=== PATIENT | female | born 2000 | race Hispanic/Latino ===

== ENCOUNTER 2023-05-22 13:31 | Emergency (ER) | payer OTHER ==
[~2023-05-22] VITALS: Ht 152.4 cm; Wt 45.4 kg
[2023-05-22 13:34] VITALS: BP 117/73; PULSE 93; RESP 20
[2023-05-22 14:07] LABS: RAPID GROUP A STREP negative (NEGATIVE)
[2023-05-22 14:14] LABS: SARS-CoV-2, RNA, NAAT NEGATIVE SARS CoV-2 (NEGATIVE)
[2023-05-22 14:17] LABS: INFLUENZA TYPE A Negative For Type A (NEGATIVE); INFLUENZA TYPE B Negative For Type B (NEGATIVE)
== END 2023-05-22 17:33 | disposition left against medical advice (07) ==
LOC: EDH 13:31
DX: R51.9 Headache, unspecified (principal); Z53.21 Procedure and treatment not carried out due to patient leaving prior to being seen by health care provider
CPT/HCPCS: 99281; 87635; 87880; 87804 ×2; C9803

== ENCOUNTER 2024-01-17 20:13 | Emergency (ER) | payer OTHER ==
[~2024-01-17] VITALS: Ht 152.4 cm; Wt 44.0 kg
[2024-01-17 20:45] LABS: ADD UA MICROSCOPIC YES; APPEARANCE,URINE CLEAR (CLEAR); BILIRUBIN,URINE NEGATIVE (NEGATIVE); COLOR,URINE YELLOW (YELLOW); GLUCOSE, URINE (UA) 70 mg/dL (NEGATIVE); KETONES,URINE NEGATIVE (NEGATIVE); LEUKOCYTE ESTERASE ,URINE NEGATIVE Leu/uL (NEGATIVE); NITRATE,URINE NEGATIVE (NEGATIVE); OCCULT BLOOD,URINE MODERATE (NEGATIVE); PH,URINE 7.5 (5.0-8.0); PROTEIN,URINE 50 mg/dL (NEGATIVE); UROBILINOGEN,URINE 12 mg/dL (0.2-1.0)
[2024-01-17 20:48] LABS: BACTERIA,URINE FEW /HPF (None Seen); MUCUS,URINE MOD LPF (None Seen); SQUAMOUS EPITHELIAL CELL,UR RARE /HPF (0-2)
[2024-01-17 20:58] LABS: RAPID GROUP A STREP negative (NEGATIVE)
[2024-01-17 21:05] LABS: SARS-CoV-2, RNA, NAAT NEGATIVE SARS CoV-2 (NEGATIVE)
[2024-01-17 21:09] LABS: INFLUENZA TYPE A Negative For Type A (NEGATIVE); INFLUENZA TYPE B Negative For Type B (NEGATIVE)
[2024-01-17 21:55] LABS: BASOPHILS # (AUTO) 0.03 K/uL (0.00-0.20); BASOPHILS % (AUTO) 0.6 % (0.0-5.0); HEMATOCRIT 36.8 % (36-48); IMMATURE GRANULOCYTE ABSOLUTE 0.01 K/uL (0-1); LYMPHOCYTES # (AUTO) 1.1 K/uL (1.0-4.8); LYMPHOCYTES % (AUTO) 21.4 % (21.0-51.0); MEAN CORPUSCULAR HEMOGLOBIN 28.9 pg (27.0-33.0); MEAN CORPUSCULAR HGB CONC 35.3 g/dL (32.0-36.0); MEAN CORPUSCULAR VOLUME 81.8 fL (80-100); MONOCYTES # (AUTO) 0.2 K/uL (0.1-1.0); MONOCYTES % (AUTO) 4.4 % (3.0-13.0); NEUTROPHILS # (AUTO) 3.6 K/uL (1.8-7.7); NEUTROPHILS % (AUTO) 73.4 % (40.0-77.0); PLATELET COUNT (AUTO) 142 K/uL (130-400); RED CELL DISTRIBUTION WIDTH 11.4 % (11.0-15.5)
[2024-01-17 22:09] LABS: CREATININE 0.7 mg/dL (0.5-1.0); POTASSIUM 3.2 mmol/L (3.5-5.1)
[2024-01-17 22:15] LABS: ALBUMIN 3.4 g/dL (3.5-5.0); BILIRUBIN,TOTAL 0.5 mg/dL (0.2-1.0); TOTAL PROTEIN, SERUM 7.2 g/dL (6.0-8.3)
[2024-01-17 22:16] LABS: BAND NEUTROPHILS % (MANUAL) 45 % (0-2); LYMPHOCYTES % (MANUAL) 25 % (22-44); MAN.DIFF COMMENT-IMPRESSION MANUAL DIFFERENTIAL; MONOCYTES % (MANUAL) 7 % (2-9); PLATELET MORPHOLOGY COMMENT ADEQUATE; SEGMENTED NEUTROPHILS % 23 % (40-70); TOTAL CELLS COUNTED 100; WBC MORPHOLOGY CONSISTENT W/DIFF
[2024-01-17 22:23] VITALS: BP 94/62; PULSE 109; RESP 18; O2SAT 97
[2024-01-17] MEDS: ACETAMINOPHEN 325 MG TAB PO ONE (22:30)
[2024-01-17] MEDS: POTASSIUM BICARB/CIT AC 25 MEQ TABLET.EFF PO ONE (23:12)
[2024-01-17] MEDS: 0.9%NACL 1000ML 1,000 ML IV ONE (23:12)
[2024-01-17] MEDS: ONDANSETRON ODT 4MG TAB SL ONE (23:12)
[2024-01-17] MEDS: IBUPROFEN 200 MG TAB PO ONE (23:14)
[2024-01-17 23:20] VITALS: TEMP 102.9
[2024-01-17] MEDS ORDERED: ONDA4TAB10 PO (23:51)
[2024-01-17] MEDS ORDERED: IBUP-2077 PO (23:51)
[2024-01-17] MEDS ORDERED: ACET-2123 PO (23:51)
[2024-01-18] MEDS: HYDROCODONE/ACETAMINOPHEN 5/325 MG TAB PO ONE (00:12)
== END 2024-01-18 00:16 | disposition home or self-care (01) ==
LOC: EDH 20:13
DX: B34.9 Viral infection, unspecified (principal); E87.6 Hypokalemia; E87.1 Hypo-osmolality and hyponatremia; F41.9 Anxiety disorder, unspecified; Z20.822 Contact with and (suspected) exposure to COVID-19
CPT/HCPCS: 99284; 87635; 80053; 85025; 87880; 87804 ×2; 81001; 81025; 36415; J7030